=== PATIENT | female | born 1965 | race Caucasian/White ===

== ENCOUNTER 2018-02-08 08:40 | Emergency (ER) | payer BC ==
--- NOTE | 2018-02-08 10:53 | UC ---
Skin Complaint HPI - HPI Summary HPI Summary: 52 year old female with skin concern. She states 3 days ago was in her lawn taking care of her garden and had sun exposure and thinks she received insect bite. She noticed a rounded raised red blister that presented it self 2 days ago and had clear bloody yellow discharge in it when she scratched it yesterday as it is itchy. no fever. she states she has some roses but was no where near them and did not touch them. She has concern as the circular redness has gotten larger and is now the size of a nickel. 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 - History of Current Complaint Chief Complaint: UCSkin Time Seen by Provider: 02/08/18 10:31 Stated Complaint: SKIN COMP Hx Obtained From: Patient ?: No Onset/Duration: Gradual Onset Timing: Constant Onset Severity: Mild Current Severity: Moderate Pain Intensity: 0 Character: Pruritus, Redness, Raised Associated Signs & Symptoms: Positive: Negative, Drainage, Tenderness Related History: Possible Reaction to: Insect - Allergy/Home Medications Allergies/Adverse Reactions: Allergies Allergy/AdvReac Type Severity Reaction Status Date / Time codeine Allergy Altered Verified 02/08/18 09:39 Mental Status Tetanus Vaccines and Toxoid Allergy Altered Verified 02/08/18 09:39 Mental Status Review of Systems Constitutional: Negative Skin: Other - left arm redness / insect bite Is Patient Immunocompromised?: No All Other Systems Reviewed And Are Negative: Yes PMH/Surg Hx/FS Hx/Imm Hx Previously Healthy: Yes - Surgical History Surgical History: Yes Surgery Procedure, Year, and Place: gallbladder - Family History Known Family History: Positive: None - Social History Occupation: Employed Full-time Alcohol Use: None Substance Use Type: None Smoking Status (MU): Heavy Every Day Tobacco Smoker Type: Cigarettes Amount Used/How Often: 1/2 ppd Physical Exam Triage Information Reviewed: Yes Appearance: Well-Appearing, No Pain Distress, Well-Nourished Vital Signs: Initial Vital Signs Temp 97.7 F 02/08/18 09:35 Pulse 85 02/08/18 09:35 Resp 14 02/08/18 09:35 BP 116/81 02/08/18 09:35 Pulse Ox 100 02/08/18 09:35 Vital Signs Reviewed: Yes Respiratory Exam: Normal Cardiovascular Exam: Normal Musculoskeletal Exam: Normal Neurological Exam: Normal Psychological Exam: Normal Skin: Positive: Other - left distal forearm palmar aspect with round red raised lesion 3x3 mm with some irritation and serosanguinous discharge. mild induration /erythema around the area. no streaking. no bruising. tender to palpation. Course/Dx - Course Course Of Treatment: Discussed S/S of sporotrichosis and she does not feel that is the case and wants to try topical Abx at this time and if not improved and redness spreads to start oral therapy. I showed her pictures of fungal infection and it does not present at this time as that . If it does she will RTO for further eval . - Differential Diagnoses - Skin Complaint Differential Diagnoses: Allergic Reaction, Cellulitis, Contact Dermatitis, Local Allergic Reaction, MRSA, Poison Silvia, Poison Friedens, Urticaria - Diagnoses Provider Diagnoses: insect bite with secondary bacterial skin infection Discharge - Sign-Out/Discharge Documenting (check all that apply): Discharge/Admit/Transfer - Discharge Plan Condition: Good Disposition: HOME Prescriptions: Mupirocin 2% OINT* [Bactroban 2 % Oint*] 1 applic TOPICAL BID #1 tube Sulfamethox/Trimethoprim DS* [Bactrim DS 800/160 TAB*] 1 tab PO BID #14 tab Patient Education Materials: Insect Bite or Sting (ED) Referrals: No Primary Care Phys,NOPCP [Primary Care Provider] - 4 Days Additional Instructions: As we discussed we will advise to start topical antibiotics and if your symptoms worsen then start oral antibiotics. We also discussed sporotrichosis / fungal infection from roses-- if you develop any skin infection symptoms of that infection then please seek medical care to discuss alternative medical treatments. - Billing Disposition and Condition Condition: GOOD Disposition: HOME
== END 2018-02-08 11:01 | disposition home or self-care (01) ==
LOC: UCCORT 08:40
DX: S50.862A Insect bite (nonvenomous) of left forearm, initial encounter (principal); B96.89 Other specified bacterial agents as the cause of diseases classified elsewhere; W57.XXXA Bitten or stung by nonvenomous insect and other nonvenomous arthropods, initial encounter; Y93.H2 Activity, gardening and landscaping; Y92.007 Garden or yard of unspecified non-institutional (private) residence as the place of occurrence of the external cause; Z88.5 Allergy status to narcotic agent; Z88.7 Allergy status to serum and vaccine; F17.210 Nicotine dependence, cigarettes, uncomplicated
CPT/HCPCS: 99202; G0463

== ENCOUNTER 2018-06-04 07:26 | Emergency (ER) | payer BC ==
[2018-06-04 07:49] VITALS: BP 144/83
--- NOTE | 2018-06-04 08:26 | UC ---
Throat Pain/Nasal Roderick HPI - HPI Summary HPI Summary: 53-year-old woman comes to clinic today with a chief complaint of I think I have a sinus infection. 7 days ago while changing altitude in a car she had a sudden pop and filling of the left ear. Gradually frontal sinus headache has developed. She can feel fluid moving around in the sinuses. She is having a hard time getting any of the rhinorrhea out. The headache is mild 2-4 in intensity it improves with [id number] medications. The left ear still feels full. Over the last couple of days she is developed some dizziness where she feels like she is on a boat with the floor moving. This is worse with head movement. Improved with rest laying down. No fevers. No focal weakness or numbness or neurologic deficit. - History of Current Complaint Chief Complaint: UCGeneralIllness Stated Complaint: SINUSES EARS HEADACHE Time Seen by Provider: 06/04/18 08:07 Pain Intensity: 8 - Allergies/Home Medications Allergies/Adverse Reactions: Allergies Allergy/AdvReac Type Severity Reaction Status Date / Time codeine Allergy Altered Verified 06/04/18 07:46 Mental Status Penicillins Allergy See Comment Verified 06/04/18 07:46 Tetanus Vaccines and Toxoid Allergy Altered Verified 06/04/18 07:46 Mental Status Home Medications: Home Medications Ibuprofen TAB* [Advil TAB*] 200 mg PO Q6H PRN 06/04/18 [History Confirmed ] Zinc 50 mg PO ONCE 06/04/18 [History Confirmed 06/04/18] PMH/Surg Hx/FS Hx/Imm Hx Previously Healthy: Yes - Surgical History Surgical History: Yes Surgery Procedure, Year, and Place: gallbladder - Family History Known Family History: Positive: Cardiac Disease, Diabetes - Social History Occupation: Employed Full-time Alcohol Use: None Substance Use Type: None Smoking Status (MU): Heavy Every Day Tobacco Smoker Type: Cigarettes Amount Used/How Often: 1/2 ppd Review of Systems Constitutional: Negative Skin: Negative Eyes: Negative ENT: Ear Ache - LEFT, Sinus Congestion, Sinus Pain/Tenderness Respiratory: Negative Cardiovascular: Negative Gastrointestinal: Negative Motor: Negative Neurovascular: Negative Musculoskeletal: Negative Neurological: Other - Dizziness with head movement Psychological: Negative Is Patient Immunocompromised?: No All Other Systems Reviewed And Are Negative: Yes Physical Exam Triage Information Reviewed: Yes Appearance: Well-Appearing, No Pain Distress, Well-Nourished Vital Signs: Initial Vital Signs Temp 97.9 F 06/04/18 07:42 Pulse 104 06/04/18 07:42 Resp 16 06/04/18 07:42 BP 144/83 06/04/18 07:42 Pulse Ox 100 06/04/18 07:42 Vital Signs Reviewed: Yes Eye Exam: Normal - LEFT NIKOLAI. ENT: Positive: Nasal congestion, TM bulging - LEFT, Sinus tenderness, Uvula midline Neck exam: Normal Neck: Positive: Supple, Nontender Respiratory Exam: Normal Respiratory: Positive: Lungs clear, Normal breath sounds, No respiratory distress Cardiovascular Exam: Normal Cardiovascular: Positive: RRR Musculoskeletal Exam: Normal Musculoskeletal: Positive: Strength Intact, ROM Intact Neurological Exam: Normal Neurological: Positive: Alert Psychological Exam: Normal Skin Exam: Normal Throat Pain/Nasal Course/Dx - Course Course Of Treatment: Probable cause of dizziness is the left serous otitis media in conjunction with sinusitis. We'll treat the sinusitis and the serous otitis media with an antibiotic. Also prescribed meclizine for the dizziness. We discussed getting reevaluated for possible head CT if any of her condition worsens or if she does not improve. At this time there is no focal neurologic deficit or are a sign of stroke. Follow-up with her primary care doctor recheck sooner if worse or go to the emergency department for worse. - Differential Dx/Diagnosis Provider Diagnoses: SINUSITIS. LEFT NIKOLAI. DIZZINESS Discharge - Sign-Out/Discharge Documenting (check all that apply): Patient Departure All imaging exams completed and their final reports reviewed: No Studies - Discharge Plan Condition: Stable Disposition: HOME Prescriptions: Cefdinir 250mg/5 ml* [Omnicef 250 mg/5 ml*] 300 mg PO BID #120 ml Meclizine HCl [Motion Sickness Relief-] 25 mg PO Q4H PRN #15 tab PRN Reason: Dizziness Forms: *Work Release Referrals: [facility] [place] [facility] [Outside] Additional Instructions: FOLLOW UP WITH YOUR DOCTOR IOF NOT COMPLETELY IMPROVED. GET RECHECKED FOR ANY WORSENING OF YOUR CONDITION; PAIN, WORSE DIZZINESS, WEAKNESS, NUMBNESS OR QUESTIONS OR CONCERNS. - Billing Disposition and Condition Condition: STABLE Disposition: Home - Attestation Statements Document Initiated by Scribe: No
== END 2018-06-04 08:40 | disposition home or self-care (01) ==
LOC: UCCORT 07:26
DX: H65.92 Unspecified nonsuppurative otitis media, left ear (principal); J32.9 Chronic sinusitis, unspecified; R42 Dizziness and giddiness; Z88.0 Allergy status to penicillin; Z88.5 Allergy status to narcotic agent; Z88.7 Allergy status to serum and vaccine; F17.210 Nicotine dependence, cigarettes, uncomplicated
CPT/HCPCS: 99212; G0463